=== PATIENT | female | born 2000 | race Caucasian/White ===

== ENCOUNTER 2023-02-27 11:08 | Outpatient (OUT) | payer OTHER, SELFPAY ==
[2023-02-27 12:04] LABS: Basophils Percent Auto 0.4 % (0.2-2.0); Eosinophils Absolute Auto 0.1 10^3/uL (0.0-0.7); Eosinophils Percent Auto 0.9 % (0.9-7.0); Hemoglobin 13.5 g/dL (12.0-16.0); Immature Granulocytes Abs Auto 0.03 10^3/uL (0.00-0.03); Immature Granulocytes Pct Auto 0.3 % (0.0-0.5); Lymphocytes Absolute Auto 2.8 10^3/uL (1.2-3.8); Lymphocytes Percent Auto 29.9 % (20.5-60.0); Mean Corpuscular HGB Conc 32.1 g/dL (29.9-35.2); Mean Corpuscular Hemoglobin 28.8 pg (26.7-34.0); Mean Corpuscular Volume 89.6 fL (81.0-99.0); Mean Platelet Volume 9.7 fL (9.5-13.5); Monocytes Absolute Auto 0.5 10^3/uL (0.3-0.8); Monocytes Percent Auto 5.4 % (1.7-12.0); Neutrophils Absolute Auto 5.9 10^3/uL (1.4-6.5); Neutrophils Percent Auto 63.1 % (43.0-75.0); Platelet Count 275 10^3/uL (150-450); Red Blood Count 4.69 10^6/uL (4.20-5.40); Red Cell Distribution Width 12.4 % (11.0-15.0); White Blood Count 9.4 10^3/uL (4.0-11.0)
[2023-02-27 12:07] LABS: HCG Quantitative <1 mIU/mL; Thyroid Stimulating Hormone 1.439 uIU/mL (0.358-3.740)
[2023-02-27 12:16] LABS: Estimated Average Glucose 97 mg/dL
[2023-02-27 12:28] LABS: Free T4 0.76 ng/dL (0.76-1.46)
[2023-02-28 04:10] LABS: FSH 3.9 mIU/mL (.); Luteinizing Hormone(LH) 5.3 mIU/mL (.)
[2023-03-03 20:07] LABS: DHEA, Serum 310 ng/dL (31-701)
== END 2023-02-27 11:09 | disposition home or self-care (01) ==
LOC: LAB 11:11
PROVIDERS: Visit Provider Obstetrics & Gynecology
DX: R10.2 Pelvic and perineal pain (principal); N92.6 Irregular menstruation, unspecified; E88.810 Metabolic syndrome; E28.2 Polycystic ovarian syndrome
CPT/HCPCS: 36415; 82626; 82627; 83001; 83002; 83036; 84439; 84443; 84702; 85025

== ENCOUNTER 2023-08-14 19:17 | Outpatient (REF) | payer OTHER, SELFPAY ==
[2023-08-20 12:09] LABS: Age Gdln ACOG Testing Note (.); IGP, rfx Aptima HPV ASCU Note (.)
== END 2023-08-14 19:18 | disposition home or self-care (01) ==
LOC: LAB 19:17
PROVIDERS: Visit Provider Obstetrics & Gynecology
DX: Z01.419 Encounter for gynecological examination (general) (routine) without abnormal findings (principal)
CPT/HCPCS: G0145

== ENCOUNTER 2025-03-07 12:49 | Outpatient (REF) | payer OTHER, SELFPAY ==
[2025-03-10 14:09] LABS: Age Gdln ACOG Testing Note (.); IGP, rfx Aptima HPV ASCU Note (.)
== END 2025-03-07 12:50 | disposition home or self-care (01) ==
LOC: LAB 12:49
PROVIDERS: Visit Provider Obstetrics & Gynecology
DX: Z01.419 Encounter for gynecological examination (general) (routine) without abnormal findings (principal)
CPT/HCPCS: 88175